=== PATIENT | female | born 1975 | race Caucasian/White ===

== ENCOUNTER 2017-04-16 03:55 | Inpatient (IN) | payer OTHER ==
[2017-04-16] MEDS ORDERED: BUTORPHANOL TARTRATE 1 MG/ML VIAL IVPUSH ONE (04:20)
[2017-04-16] MEDS ORDERED: PROMETHAZINE HCL 25 MG/1 ML VIAL IVPUSH ONE (04:20)
[2017-04-16 05:25] VITALS: BMI 31.1
[2017-04-16 05:37] LABS: BASOPHIL 0.3 % (0-2.0); EOSINOPHIL 1.3 % (0-4.5); MCH 26.5 pg (25.7-33.7); MCHC 32.5 g/dl (32.0-36.0); MEAN CELL VOLUME 81.5 fl (80-96); MEAN PLT VOLUME 8.8 fl (7.5-11.1); NEUTROPHILS 68.9 % (42.8-82.8); PLATELET COUNT 174 K/MM3 (134-434); RDW 14.3 % (11.6-15.6); WHITE BLOOD COUNT 9.2 K/mm3 (4.0-10.0)
[2017-04-16] MEDS ORDERED: DEXTROSE 5%-LACTATED RINGERS 1,000 ML IV SCH (05:45)
[2017-04-16 05:55] LABS: INR 0.85 (0.82-1.09); PROTHROMBIN TIME (PATIENT) 9.3 SEC (9.98-11.88)
[2017-04-16 05:57] LABS: ACTIVATED PTT 28.4 SECONDS (26.9-34.4)
[2017-04-16 06:22] LABS: CALCIUM 9.1 mg/dL (8.5-10.1); COCKROFT - GAULT 131.342; CREATININE 0.7 mg/dL (0.55-1.02)
--- NOTE | 2017-04-16 07:14 | HP ---
Past Medical History - Primary Care Physician PCP:: Jose Sorenson - Admission Chief Complaint: 39 weeks, labor History of Present Illness: 41 yo f , edc by sono 04/21/17 in [facility], had rom at 1 am, clear , cx 4 cm 8o vx -2 mr, fhr cat 1, contraction regular History Source: Patient Limitations to Obtaining History: No Limitations, Language Barrier - Past Medical History ...: 8 ...Para: 6 ...Term: 6 ...: 0 ...Spon : 0 ...Induced : 1 ...Multiple Gestation: 0 ...LMP: 07/19/16 ... Weeks Gestation by Dates: 38.5 ...EDC by Dates: 04/25/17 ...EDC by Sono: 04/21/17 Additional OB History: 6 , no complication Infectious Disease: Yes: STD's (txed for [id number]/12/16) - Past Surgical History Hx Myomectomy: No Hx Transabdominal Cerclage: No - Smoking History Smoking history: Never smoked - Alcohol/Substance Use Hx Alcohol Use: No History of Substance Use: reports: None - Social History History of Recent Travel: No Home Medications - Allergies Allergies/Adverse Reactions: Allergies Allergy/AdvReac Type Severity Reaction Status Date / Time No Known Allergies Allergy Verified 04/16/17 04:30 - Home Medications Home Medications: Ambulatory Orders Vit Calc,Iron,Folic [ Vitamins] 1 each PO DAILY 04/16/17 Review of Systems - Review of Systems Constitutional: reports: No Symptoms Eyes: reports: No Symptoms HENT: reports: No Symptoms Neck: reports: No Symptoms Cardiovascular: reports: No Symptoms Respiratory: reports: No Symptoms Gastrointestinal: reports: No Symptoms Genitourinary: reports: No Symptoms Breasts: reports: No Symptoms Reported Musculoskeletal: reports: No Symptoms Integumentary: reports: No Symptoms Neurological: reports: No Symptoms Endocrine: reports: No Symptoms Psychiatric: reports: No Symptoms Physical Exam - Maternity Vital Signs: Vital Signs Temperature 98.3 F 04/16/17 06:00 Pulse Rate 75 04/16/17 06:00 Respiratory Rate 20 04/16/17 06:00 Blood Pressure 126/61 04/16/17 06:00 O2 Sat by Pulse Oximetry (%) Constitutional: Yes: Well Nourished, No Distress, Calm Eyes: Yes: WNL, Conjunctiva Clear, EOM Intact HENT: Yes: WNL, Atraumatic, Normocephalic Neck: Yes: WNL, Supple, Trachea Midline Cardiovascular: Yes: WNL, Regular Rate and Rhythm Breast(s): Yes: WNL - Abdominal Exam/OB Fundal Height: 38 Number of Fetuses: Single Presentation: Vertex Regularity: Irregular Intensity: Mod/Strong Monitor Mode: External Heart Rate Location: [facility] Category: I Accelerations: Uniform Decelerations: None - Vaginal Exam/OB Speculum Exam: No Dilatation (cm): 4 cm Effacement (%): 80 Amniotic Membrane Status: Ruptured Nitrazine Test: Positive Amniotic Fluid: Yes: Clear Presentation: Vertex/Position Station: -2 - Physical Exam Musculoskeletal: Yes: WNL Extremities: Yes: WNL Edema: Yes Edema: LLE: Trace, RLE: Trace Deep Tendon Reflex Grade: Normal +2 - Labs Lab Results: CBC, BMP 04/16/17 05:00 04/16/17 05:00 Hemorrhage Risk Assessment - Risk Factors Medium Risk Factors: Yes: Multiple gestation Risk Score: 1 Risk Level: Medium Risk Problem List - Problems (1) with 39 completed weeks gestation Code(s): Z3A.39 - 39 WEEKS GESTATION OF (2) membrane rupture Code(s): XUQ2644 - (3) Labor established Code(s): DDA1507 - (4) Advanced maternal age (AMA) in Code(s): TIY5515 - Assessment/Plan admit, heart monitoring. pain management
[2017-04-16] MEDS ORDERED: BENZOCAINE 28 GM HEMORRHOIDAL OINTMENT TP PRN (07:59)
[2017-04-16] MEDS ORDERED: METHYLERGONOVINE MALEATE 0.2 MG/1 ML AMP IM PRN (07:59)
[2017-04-16] MEDS ORDERED: BISACODYL 10 MG SUPP.RECT RC PRN (07:59)
[2017-04-16] MEDS ORDERED: WITCH HAZEL 50% (TUCKS) 40 PAD/JAR PAD TP PRN (07:59)
[2017-04-16] MEDS ORDERED: BENZOCAINE 20% 57 GM BOTTLE TP PRN (07:59)
[2017-04-16] MEDS ORDERED: D5W-LR W/ 20 UNITS OXYTOCIN 1,000 ML IV SCH (08:00)
[2017-04-16] MEDS: PRENATAL VITAMINS W/ FOLIC ACID TABLET (FP) PO SCH (09:08)
[2017-04-16] MEDS: FERROUS SO4 325 MG TABLET (FP) PO SCH ×2 (09:08→21:21)
[2017-04-16] MEDS: IBUPROFEN 600 MG TABLET (FP) PO PRN ×2 (09:08→21:22)
[2017-04-16] MEDS: ACETAMINOPHEN 325 MG TABLET (FP) PO PRN ×2 (09:09→21:22)
[2017-04-16] MEDS ORDERED: PRENATAL VITAMINS W/ FOLIC ACID TABLET (FP) PO SCH (10:00)
[2017-04-16] MEDS: SENNOSIDES/DOCUSATE COMBO (SENNA PLUS) TABLET (UD) PO PRN (21:22)
--- NOTE | 2017-04-17 07:40 | PN ---
Progress Note (short form) - Note Progress Note: ppd 1 doing well, no c/o voids ok CBC, BMP 04/16/17 05:00 04/16/17 05:00 Last Vital Signs Temp Pulse Resp BP Pulse Ox 98.9 F 65 20 103/75 04/17/17 05:00 04/17/17 05:00 04/17/17 05:00 04/17/17 05:00 abdomen soft, non tender, uterus firm lochia mild , no calf tenderness plan ambulate , cbc Problem List - Problems (1) with 39 completed weeks gestation Code(s): Z3A.39 - 39 WEEKS GESTATION OF (2) membrane rupture Code(s): TCW4110 - (3) Labor established Code(s): CKB2914 - (4) Advanced maternal age (AMA) in Code(s): NHQ7403 -
[2017-04-17 07:49] LABS: BASOPHIL 0.4 % (0-2.0); EOSINOPHIL 2.5 % (0-4.5); MCH 27.4 pg (25.7-33.7); MCHC 33.9 g/dl (32.0-36.0); MEAN CELL VOLUME 80.9 fl (80-96); MEAN PLT VOLUME 8.3 fl (7.5-11.1); NEUTROPHILS 69.6 % (42.8-82.8); PLATELET COUNT 155 K/MM3 (134-434); RDW 14.7 % (11.6-15.6); WHITE BLOOD COUNT 9.6 K/mm3 (4.0-10.0)
[2017-04-17] MEDS: FERROUS SO4 325 MG TABLET (FP) PO SCH ×2 (10:12→21:37)
[2017-04-17] MEDS: PRENATAL VITAMINS W/ FOLIC ACID TABLET (FP) PO SCH (10:13)
[2017-04-17] MEDS: SENNOSIDES/DOCUSATE COMBO (SENNA PLUS) TABLET (UD) PO PRN (21:37)
[2017-04-17] MEDS: IBUPROFEN 600 MG TABLET (FP) PO PRN (21:38)
[2017-04-17] MEDS: ACETAMINOPHEN 325 MG TABLET (FP) PO PRN (21:40)
--- NOTE | 2017-04-18 07:50 | PN ---
Post Progress Note - Subjective Subjective: asymptomatic Post Day: 2 Type of Delivery: Vital Signs: Vital Signs Temperature 99.2 F 04/17/17 21:38 Pulse Rate 74 04/17/17 21:38 Respiratory Rate 20 04/17/17 21:38 Blood Pressure 113/64 04/17/17 21:38 O2 Sat by Pulse Oximetry (%) Breast Exam: Yes: Soft, Other (BF ). No: Engorged Uterus: Yes: Fundus Firm, Fundus below umbilicus, Non-tender Lochia: Yes: Rubra Lochia, amount: Moderate Extremities: Yes: Calves non-tender Perineum: Yes: Intact Activity: Ambulating - Labs Labs: CBC WBC 9.6 K/mm3 (4.0-10.0) 04/17/17 06:45 RBC 4.60 M/mm3 (3.60-5.2) 04/17/17 06:45 Hgb 12.6 GM/dL (10.7-15.3) 04/17/17 06:45 Hct 37.2 % (32.4-45.2) 04/17/17 06:45 MCV 80.9 fl (80-96) 04/17/17 06:45 MCHC 33.9 g/dl (32.0-36.0) 04/17/17 06:45 RDW 14.7 % (11.6-15.6) 04/17/17 06:45 Plt Count 155 K/MM3 (134-434) 04/17/17 06:45 MPV 8.3 fl (7.5-11.1) 04/17/17 06:45 Neutrophils % 69.6 % (42.8-82.8) 04/17/17 06:45 Lymphocytes % 22.8 % (8-40) 04/17/17 06:45 Monocytes % 4.7 % (3.8-10.2) 04/17/17 06:45 Eosinophils % 2.5 % (0-4.5) D 04/17/17 06:45 Basophils % 0.4 % (0-2.0) 04/17/17 06:45 Assessment/Plan stable plan ct pp care dicharge today
[2017-04-18] MEDS: FERROUS SO4 325 MG TABLET (FP) PO SCH (09:23)
[2017-04-18] MEDS: PRENATAL VITAMINS W/ FOLIC ACID TABLET (FP) PO SCH (09:23)
[2017-04-18 13:37] VITALS: BP 126/67; PULSE 77; TEMP 98.8
--- NOTE | 2017-04-20 20:15 | DS ---
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 Vital Signs: Vital Signs Temperature 98.8 F 04/18/17 10:00 Pulse Rate 77 04/18/17 10:00 Respiratory Rate 20 04/18/17 10:00 Blood Pressure 126/67 04/18/17 10:00 O2 Sat by Pulse Oximetry (%) Constitutional: Yes: Well Nourished, No Distress, Calm Eyes: Yes: WNL, Conjunctiva Clear, EOM Intact HENT: Yes: WNL, Atraumatic, Normocephalic Neck: Yes: WNL, Supple, Trachea Midline Cardiovascular: Yes: WNL, Regular Rate and Rhythm Respiratory: Yes: WNL, Regular, CTA Bilaterally Gastrointestinal: Yes: WNL ...Rectal Exam: Yes: WNL Renal/: Yes: WNL ....Post : Yes: Uterus firm, Uterus non-tender, Slight lochia rubra Breast(s): Yes: WNL Musculoskeletal: Yes: WNL Extremities: Yes: WNL Edema: No Integumentary: Yes: WNL Neurological: Yes: WNL, Alert, Oriented ...Motor Strength: WNL Psychiatric: Yes: WNL, Alert, Oriented Labs: CBC, BMP 04/17/17 06:45 04/16/17 05:00 Delivery - Delivery Vaginal Delivery: Spontaneous (no complication) Type of Anesthesia: None Episiotomy/Laceration: None EBL (cc): 300 Delivery, Single - Stages of Labor Date 1st Stage Initiatied: 04/16/17 Time 1st Stage Initiated: 02:00 Date 2nd Stage Initiated: 04/16/17 Time 2nd Stage Initiated: 07:20 Date of Delivery: 04/16/17 Time of Delivery: 07:35 Time Placenta Delivered: 07:40 Placenta: Yes: Spontaneous - 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 * RTC 6 weeks call for appointment If you experience excessive bleeding or fever over 101 degrees, call doctor, the clinic or go to the Emergency Room. Referrals: Jose Sorenson MD [Staff Physician] - Disposition: HOME - Home Medications Comprehensive Discharge Medication List: Ambulatory Orders Vit Calc,Iron,Folic [ Vitamins] 1 each PO DAILY 04/16/17 Acetaminophen [Tylenol .Regular Strength -] 650 mg PO Q3H PRN #0 tablet Ibuprofen [Motrin -] 200 mg PO Q4H PRN #0 tablet 04/18/17
== END 2017-04-18 13:30 | disposition home or self-care (01) | DRG 560 ==
LOC: JDEL 03:55 → JLDR 04:20 → J3W 08:45
PROVIDERS: ADMIT Obstetrics & Gynecology; ATTEND Obstetrics & Gynecology
PROC: 10E0XZZ Delivery of Products of Conception, External Approach (ICD-10-PCS; principal; 2017-04-16)
PROC: 3E0334Z Introduction of Serum, Toxoid and Vaccine into Peripheral Vein, Percutaneous Approach (ICD-10-PCS; 2017-04-16)
DX: O26.893 Other specified pregnancy related conditions, third trimester (principal); Z67.91 Unspecified blood type, Rh negative; Z3A.39 39 weeks gestation of pregnancy; Z37.0 Single live birth
CPT/HCPCS: 36415; 59025; 59409; 80048; 85025; 85461; 85610; 85730; 86593; 86850; 86900; 86901; 86999

== ENCOUNTER 2018-02-13 03:16 | Emergency (ER) | payer OTHER ==
[2018-02-13 05:05] VITALS: BMI 27.4
[2018-02-13] MEDS ORDERED: AMOX TR/POT CLAV 875MG/125MG TABLETS (FP) PO ONE (05:35)
--- NOTE | 2018-02-13 05:47 | PDOC ---
History of Present Illness - General Chief Complaint: Pain Stated Complaint: LEFT BREAST PAIN Time Seen by Provider: 02/13/18 05:19 History Source: Patient Exam Limitations: No Limitations - History of Present Illness Initial Comments: 02/13/18 05:41 Patient is a 42F actively 10 month baby here today complaining of 2 days of pain in her left breast, worsening today. Patient denies fevers, chills, nausea, vomiting. Patient states that she does not have a primary care provider. Patient denies shortness of breath, chest pain. Denies prior difficulties in this . Denies discharge from nipple. Past History - Past Medical History Allergies/Adverse Reactions: Allergies Allergy/AdvReac Type Severity Reaction Status Date / Time No Known Allergies Allergy Verified 04/16/17 04:30 Home Medications: Ambulatory Orders Vit Calc,Iron,Folic [ Vitamins] 1 each PO DAILY 04/16/17 Acetaminophen [Tylenol .Regular Strength -] 650 mg PO Q3H PRN #0 tablet Ibuprofen [Motrin -] 200 mg PO Q4H PRN #0 tablet 04/18/17 Amox-Tr/K Cl [Augmentin - 875Mg Tablet] 1 tab PO BID #14 tablet 02/13/18 Asthma: No Cancer: No Cardiac Disorders: No COPD: No Diabetes: No HTN: No Seizures: No Thyroid Disease: No - Immunization History Immunization Up to Date: Yes - Suicide/Smoking/Psychosocial Hx Smoking History: Never smoked Have you smoked in the past 12 months: No Information on smoking cessation initiated: No Hx Alcohol Use: No Review of Systems - Review of Systems Comments:: 02/13/18 05:47 GENERAL/CONSTITUTIONAL: No fever or chills. No weakness. HEAD, EYES, EARS, NOSE AND THROAT: No change in vision. No sore throat. CARDIOVASCULAR: No chest pain or shortness of breath RESPIRATORY: No cough, wheezing, or hemoptysis. GASTROINTESTINAL: No nausea, vomiting, diarrhea or constipation. GENITOURINARY: No dysuria, frequency, or change in urination. MUSCULOSKELETAL: No joint or muscle swelling or pain. No neck or back pain. SKIN: No rash NEUROLOGIC: No headache, vertigo, loss of consciousness, or change in strength/ sensation. ALLERGIC/IMMUNOLOGIC: No hives or skin allergy. *Physical Exam - Vital Signs Last Vital Signs Temp Pulse Resp BP Pulse Ox 98 F 55 L 14 102/60 99 02/13/18 05:02 02/13/18 05:02 02/13/18 05:02 02/13/18 05:02 02/13/18 05:02 - Physical Exam Comments: 02/13/18 05:47 GENERAL: Awake, alert, and fully oriented, in no acute distress L BREAST: Distended nipple with small amount of milky discharge with palpation, no erythema, tender to palpation, left breast allen than right HEAD: No signs of trauma, normocephalic, atraumatic EYES: PERRLA, EOMI, sclera anicteric, conjunctiva clear ENT: Auricles normal inspection, hearing grossly normal, nares patent, oropharynx clear without exudates. Moist mucosa NECK: Normal ROM, supple, no lymphadenopathy, JVD, or masses LUNGS: No distress, speaks full sentences, clear to auscultation bilaterally HEART: Regular rate and rhythm, normal S1 and S2, no murmurs, rubs or gallops, peripheral pulses normal and equal bilaterally. EXTREMITIES: Normal inspection, Normal range of motion, no edema. No clubbing or cyanosis. NEUROLOGICAL: Cranial nerves II through XII grossly intact. Normal speech, no focal sensorimotor deficits SKIN: Warm, Dry, normal turgor, no rashes or lesions noted. Medical Decision Making - Medical Decision Making 02/13/18 05:48 Patient is 42F here today with left breast pain. Patient has mastitis, uncomplicated, no MRSA risk factors. Will treat with Augmentin BID for 2 weeks. First dose given in ED. Will discharge with return precautions and PCP referral. *DC/Admit/Observation/Transfer Diagnosis at time of Disposition: Mastitis - Discharge Dispostion Disposition: HOME Condition at time of disposition: Good Admit: No - Prescriptions Prescriptions: Amox-Tr/K Cl [Augmentin - 875Mg Tablet] 1 tab PO BID #14 tablet - Referrals Referrals: Ang Figueroa MD [Staff Physician] - - Patient Instructions Printed Discharge Instructions: DI for Mastitis Additional Instructions: Please return if you have any new, worsening or concerning symptoms. Please follow up with a primary care physician this week. One has been provided for you in your paperwork. Print Language: IRISH - Post Discharge Activity
[2018-02-13] MEDS ORDERED: AMOX TR/POT CLAV 875MG/125MG TABLETS (FP) ONE (05:54)
[2018-02-13 06:51] VITALS: BP 104/64; PULSE 53; TEMP 97.6
--- NOTE | 2018-02-13 06:51 | PDOC ---
Attending Attestation - Resident Resident Name: Ciro Solorio - ED Attending Attestation I have performed the following: I have examined & evaluated the patient, The case was reviewed & discussed with the resident, I agree w/resident's findings & plan - HPI HPI: 02/13/18 06:49 Pt comes with left breast pain and mastitis; she is breast feeding her 10 month old regularly. - Physicial Exam PE: 02/13/18 06:50 Agree with resident exam. She has no axiallary lymph nodes; she has no rash cellulitis or skin deformity. Breast is taut and full of milk. No expression of blood with squeezing of nipple. Pt has no other complaints. SHe will be treated with augmentin BID for mastitis. - Medical Decision Making 02/14/18 22:12 Pt will follow with PMD; she will go home with abx.
== END 2018-02-13 06:54 | disposition home or self-care (01) ==
LOC: JER 03:16
DX: Z39.1 Encounter for care and examination of lactating mother (principal); N64.4 Mastodynia
CPT/HCPCS: 99281-25